=== PATIENT | male | born 1980 | race American Indian/Alaskan Native ===

== ENCOUNTER 2021-05-26 12:23 | Emergency (ER) | payer OTHER ==
--- NOTE | 2021-05-26 13:53 | Event Note ---
ED Screening Note ED Screening Note: HX HERNIA CO LLQ AND TESTICULAR PAIN HERNIA PALPABLE This initial assessment/diagnostic orders/clinical plan/treatment(s) is/are subject to change based on patients health status, clinical progression and re- assessment by fellow clinical providers in the ED. Further treatment and workup at subsequent clinical providers discretion. Patient/guardian urged not to elope from the ED as their condition may be serious if not clinically assessed and managed. Initial orders include: US UA
[2021-05-26] MEDS ORDERED: KETOROLAC 10 MG TAB PO ONE (14:22)
[2021-05-26 14:31] LABS: Bilirubin,Urine NEG (Negative); Blood,Urine SM (Negative); Color,Urine Yellow (Yellow); Mucus,Urine FEW /HPF; Protein,Urine <15 mg/dL mg/dL (Negative); Urobilinogen,Urine < 2.0 mg/dL (<2.0)
--- NOTE | 2021-05-26 15:23 | Ultrasound Report ---
ULTRASOUND SCROTUM INDICATION / CLINICAL INFORMATION: TESTICULAR PAIN. COMPARISON: None available. FINDINGS -- RIGHT: TESTIS: Size = 4.7 cm. - Appearance: No significant abnormality. - Cyst / Mass: None. - Color Doppler Flow: No significant abnormality. EPIDIDYMIS: No significant abnormality. HYDROCELE: None. VARICOCELE: None demonstrated. FINDINGS -- LEFT: TESTIS: Size = 4.8 cm. - Appearance: Hypoechoic. The left testicle is located in the left inguinal canal left groin area. - Cyst / Mass: None. - Color Doppler Flow: No significant abnormality. EPIDIDYMIS: No significant abnormality. HYDROCELE: None. VARICOCELE: None demonstrated. ADDITIONAL FINDINGS: None. IMPRESSION: 1. The left testicle is abnormal sonographic appearance. The left testicle is hypoechoic. There is ar terial flow. It is located in the left inguinal canal in the region of the left groin. This may repre sent an undescended testis. There is arterial flow. This correlates to the area of palpable concern i n the left groin. Signer Name: Rod Marie MD Signed: 05/26/2021 3:19 PM Workstation Name: [id number]
--- NOTE | 2021-05-26 16:14 | Emergency Department Report ---
ED General Adult HPI - General Chief complaint: Pain General Stated complaint: HERNIA Time Seen by Provider: 05/26/21 13:52 Source: patient Mode of arrival: Ambulatory Limitations: No Limitations - History of Present Illness Initial comments: 41-year-old black male with no past medical history presents to the emergency department for evaluation of left groin pain intermittently for the past 3 weeks. He denies fever, dysuria, and penile discharge. He states that he has a history of an undescended testicle for which he had surgery several years ago that did not resolve it. He states that he was seen in urology for during that time but since he has not given him any problems he has not seen urology in many years. He states that 3 weeks ago he started noticing a lump in his left groin accompanied with mild pain that is intermittent. He denies injury or trauma. MD Complaint: Left groin swelling and pain -: Gradual, week(s) (3) Location: pelvis (Left groin area) Radiation: non-radiation Severity scale (0 -10): 10 Quality: aching Consistency: intermittent Associated Symptoms: denies: fever/chills, loss of appetite, malaise, nausea/vomiting, shortness of breath, syncope, weakness Treatments Prior to Arrival: none - Related Data Allergies Allergy/AdvReac Type Severity Reaction Status Date / Time No Known Allergies Allergy Verified 05/26/21 13:26 ED Review of Systems ROS: Stated complaint: HERNIA Other details as noted in HPI Comment: All other systems reviewed and negative Constitutional: denies: chills, fever ENT: denies: ear pain Respiratory: denies: shortness of breath, SOB with exertion Cardiovascular: denies: chest pain, palpitations, dyspnea on exertion, edema, syncope Gastrointestinal: denies: abdominal pain, nausea, vomiting, diarrhea, hematemesis, melena, hematochezia Genitourinary: denies: urgency, dysuria, frequency, hematuria, discharge, testicular pain Musculoskeletal: denies: back pain Skin: denies: rash, lesions Neurological: denies: headache, weakness ED Past Medical Hx - Past Medical History Previous Medical History?: No ED Physical Exam - General Limitations: No Limitations General appearance: alert, in no apparent distress - Head Head exam: Present: atraumatic, normocephalic - Eye Eye exam: Present: normal appearance. Absent: conjunctival injection - Neck Neck exam: Present: normal inspection. Absent: lymphadenopathy - Respiratory Respiratory exam: Present: normal lung sounds bilaterally. Absent: respiratory distress, wheezes, rales, rhonchi, stridor, chest wall tenderness, accessory muscle use - Cardiovascular Cardiovascular Exam: Present: regular rate, normal heart sounds - GI/Abdominal GI/Abdominal exam: Present: soft, normal bowel sounds. Absent: distended, tenderness, guarding, rebound, rigid - exam: Absent: testicular tenderness, urethral discharge, scrotal swelling External exam: Present: normal external exam (No bulge swelling or tenderness noted to left groin area). Absent: erythema, swelling - Extremities Exam Extremities exam: Present: normal inspection, normal capillary refill. Absent: pedal edema, joint swelling, calf tenderness - Back Exam Back exam: Present: normal inspection. Absent: CVA tenderness (R), CVA tenderness (L) - Neurological Exam Neurological exam: Present: alert, oriented X3, normal gait - Psychiatric Psychiatric exam: Present: normal affect, normal mood - Skin Skin exam: Present: warm, dry, intact, normal color ED Course Vital Signs 05/26/21 05/26/21 13:25 16:30 Temperature 98.3 F Pulse Rate 85 80 Respiratory 17 16 Rate Blood Pressure 146/83 Blood Pressure 136/80 [Left] O2 Sat by Pulse 99 100 Oximetry ED Medical Decision Making - Radiology Data Radiology results: report reviewed Testicular ultrasound: FINDINGS -- RIGHT: TESTIS: Size = 4.7 cm. - Appearance: No significant abnormality. - Cyst / Mass: None. - Color Doppler Flow: No significant abnormality. EPIDIDYMIS: No significant abnormality. HYDROCELE: None. VARICOCELE: None demonstrated. FINDINGS -- LEFT: TESTIS: Size = 4.8 cm. - Appearance: Hypoechoic. The left testicle is located in the left inguinal canal left groin area. - Cyst / Mass: None. - Color Doppler Flow: No significant abnormality. EPIDIDYMIS: No significant abnormality. HYDROCELE: None. VARICOCELE: None demonstrated. ADDITIONAL FINDINGS: None. IMPRESSION: 1. The left testicle is abnormal sonographic appearance. The left testicle is hypoechoic. There is arterial flow. It is located in the left inguinal canal in the region of the left groin. This may represent an undescended testis. There is arterial flow. This correlates to the area of palpable concern in the left groin. - Medical Decision Making 41-year-old black male with no past medical history presents to the emergency department for evaluation of left groin pain intermittently for the past 3 weeks. He denies fever, dysuria, and penile discharge. He states that he has a history of an undescended testicle for which he had surgery several years ago that did not resolve it. He states that he was seen in urology for during that time but since he has not given him any problems he has not seen urology in many years. He states that 3 weeks ago he started noticing a lump in his left groin accompanied with mild pain that is intermittent. He denies injury or trauma. No tenderness, swelling, or lump noted to left groin area on assessment. Patient states that pain in swelling is intermittent. UA within normal limits. Patient denies abdominal pain, no acute distress noted, no signs of sepsis noted. Patient is well aware of condition and states that he thought that he will probably have to follow-up with the urologist. He was educated on the higher risk of testicular cancer given that he has an undescended testicle per ultrasound. Patient advised to follow-up with urology for further evaluation and management. He verbalized understanding of and agreement with plan of care. Critical care attestation.: If time is entered above; I have spent that time in minutes in the direct care of this critically ill patient, excluding procedure time. ED Disposition Clinical Impression: Left inguinal pain Disposition: 01 HOME / SELF CARE / HOMELESS Is pt being admited?: No Does the pt Need Aspirin: No Condition: Stable Instructions: Testicular Self-Exam, [id number], Undescended Testicle Additional Instructions: Follow-up with urology as soon as possible further evaluation and management. Referrals: MARY CHRISTINE MD [Staff Physician] - 3-5 Days Forms: Work/School Release Form(ED) Time of Disposition: 16:14
[2021-05-26 16:30] VITALS: BP 136/80
== END 2021-05-26 16:32 | disposition home or self-care (01) ==
LOC: ED 12:23
DX: R10.30 Lower abdominal pain, unspecified (principal)
CPT/HCPCS: 81001; 93975; 99284